=== PATIENT | female | born 1995 | race Caucasian/White ===

== ENCOUNTER 2019-03-14 09:37 | Outpatient (CLI) | payer OTHER ==
--- NOTE | 2019-03-14 10:20 | Non Stress Test Report ---
Non Stress Test Datetime Report Generated by CPN: 03/14/2019 10:20 DEMOGRAPHIC EGA NST: 38.2 INDICATION Indication for Study: Macrosomia; Ordered by Provider VITAL SIGNS Temperature - NST: 98.4 RESP - NST: 18 MONITORING Monitor Explained: Monitor Explained; Test Explained; Patient Verbalized Understanding Time on Monitor: 03/14/2019 09:48 Time off Monitor: 03/14/2019 10:17 NST Duration: 29 NST INTERVENTIONS NST Interventions: PO Hydration; Reposition Patient Physician Notified NST: DR NELSON BABY A: [id number] BABY A Movement : Present Contraction Frequency : none FHR Baseline : 140 Accelerations : 15X15 Decelerations : None Variability : Minimal - Undetectable to <=5bpm NST Review: Meets Criteria for Reactive NST NST Review and Verified By : Librado Honeycutt RN NST Results: Reactive NST REPORT Report Trigger: Send Report
== END 2019-03-14 10:18 | disposition home or self-care (01) ==
LOC: LC 09:37
PROVIDERS: ATTEND Obstetrics & Gynecology
PROC: 4A1HXCZ Monitoring of Products of Conception, Cardiac Rate, External Approach (ICD-10-PCS; principal; 2019-03-14)
DX: Z34.93 Encounter for supervision of normal pregnancy, unspecified, third trimester (principal)
CPT/HCPCS: 59025

== ENCOUNTER 2019-03-20 05:06 | Inpatient (IN) | payer OTHER ==
[2019-03-19 12:11] LABS: ABSOLUTE LYMPHOCYTES (AUTO) 1.1 10^3/uL (0.5-4.7); ABSOLUTE MONOCYTES (AUTO) 0.9 10^3/uL (0.1-1.4); ABSOLUTE NEUT (AUTO) 8.8 10^3/uL (1.7-8.2); BASOPHILS % (AUTO) 0.2 % (0-2); EOSINOPHILS % (AUTO) 0.2 % (0-6); HEMATOCRIT 34.5 % (36.0-47.0); HEMOGLOBIN 11.8 g/dL (12.0-15.5); LYMPHOCYTES % (AUTO) 9.9 % (13-45); MEAN CORPUSCULAR HEMOGLOBIN 29.8 pg (27.0-33.4); MEAN CORPUSCULAR HGB CONC 34.3 g/dL (32.0-36.0); MEAN CORPUSCULAR VOLUME 87 fl (80-97); MONOCYTES % (AUTO) 8.4 % (3-13); PLATELET COUNT 161 10^3/uL (150-450); RED BLOOD COUNT 3.97 10^6/uL (3.72-5.28); RED CELL DISTRIBUTION WIDTH 13.6 % (11.5-14.0); SEGMENTED NEUTROPHILS % (AUTO) 81.3 % (42-78); TOTAL CELLS COUNTED % (AUTO) 100 %; WHITE BLOOD COUNT 10.8 10^3/uL (4.0-10.5)
[2019-03-19 12:29] LABS: APPEARANCE,URINE CLEAR; BILIRUBIN,URINE NEGATIVE (NEGATIVE); COLOR,URINE YELLOW; GLUCOSE, URINE NEGATIVE (NEGATIVE); KETONES,URINE NEGATIVE (NEGATIVE); LEUKOCYTE ESTERASE,URINE NEGATIVE (NEGATIVE); NITRITE,URINE NEGATIVE (NEGATIVE); PROTEIN,URINE NEGATIVE (NEGATIVE); URINE SPECIFIC GRAVITY 1.006; UROBILINOGEN,URINE NEGATIVE mg/dL (<2.0)
[2019-03-19 12:50] LABS: URINE AMPHETAMINES SCREEN NEGATIVE; URINE BARBITURATES SCREEN NEGATIVE; URINE BENZODIAZEPINES SCREEN NEGATIVE; URINE COCAINE SCREEN NEGATIVE; URINE MARIJUANA (THC) SCREEN NEGATIVE; URINE METHADONE SCREEN NEGATIVE; URINE PHENCYCLIDINE SCREEN NEGATIVE
[2019-03-19 12:58] LABS: ADD MANUAL MICROSCOPIC YES; WBC,URINE NONE SEEN /HPF
[2019-03-19 12:59] LABS: RBC,URINE NONE SEEN /HPF
[~2019-03-20 05:06] MED LIST: CEFAZOLIN SODIUM 2 GM in DEXTROSE 5%-WATER 100 ML IV PRN; LIDOCAINE 0.5% INJ-PF (5 MG/ML) 50 ML SDV SUBCUT PRN; RINGERS SOLUTION,LACTATED 1,500 ML IV PRN
[2019-03-20] MEDS ORDERED: CEFAZOLIN INJ 1 GM VIAL ONE (06:43)
[2019-03-20] MEDS: LACTATED RINGERS 1000 ML IV PRN ×2 (06:49→17:39)
[2019-03-20] MEDS ORDERED: MIDAZOLAM 2 MG/2 ML INJ ONE (07:39)
[2019-03-20] MEDS ORDERED: PHENYLEPHRINE HCL INJ/PF 10 MG/1 ML SDV ONE (07:39)
[2019-03-20] MEDS ORDERED: CITRIC ACID/SODIUM CITRATE ORAL SOLN 15 ML UDCUP ONE (07:39)
[2019-03-20] MEDS ORDERED: OXYTOCIN 10 UNIT/ML VIAL ONE (07:39)
[2019-03-20] MEDS ORDERED: OXYTOCIN/NORMAL SALINE 20 UNIT/1,000 ML RTUINJ ONE (07:40)
[2019-03-20] MEDS ORDERED: ONDANSETRON HCL INJ/PF 4 MG/2 ML SDV ONE (07:40)
[2019-03-20] MEDS ORDERED: METHYLERGONOVINE MALEATE INJ/PF 0.2 MG/1 ML AMPULE ONE (08:22)
[2019-03-20] MEDS ORDERED: DIPHENHYDRAMINE HCL 50 MG/ML VIAL IV PRN (08:42)
[2019-03-20] MEDS ORDERED: PROMETHAZINE HCL INJ 25 MG/1 ML VIAL IV PRN ×2 (08:42→09:12)
[2019-03-20] MEDS ORDERED: FENTANYL CITRATE INJ/PF 100 MCG/2 ML AMPUL IV PRN ×3 (08:42)
[2019-03-20] MEDS ORDERED: PROPOFOL INJ 200 MG/20 ML VIAL IV ONE (08:59)
[2019-03-20] MEDS ORDERED: KETOROLAC TROMETHAMINE INJ/PF 30 MG/1 ML SDV ONE (09:02)
--- NOTE | 2019-03-20 09:02 | PDOC DELIVERY SUMMARY ---
Delivery Summary - Maternal Hx : I Hx # Pregnancies: 0 Hx Total # of Abortions (Sponateous & Elective): 0 LUCILA: 03/26/19 Gestational Age: 39+1 Risk Factors: Other - macrosomia Ruptured Membranes: AROM Fluids: Clear - Delivery Labor: Not In Labor Presentation: Vertex Heart Rate Monitoring: Done Pre-Operatively Uterine Contraction Monitoring: External Support Person Present: Yes Location: OR : Scheduled Placenta: Within Normal Limits Number of Vessels (Cord): 3 Nuchal Cord: Yes Delivery of Placenta Date: 03/20/19 Delivery of Placenta Time: 08:16 Delivery Quantitative Blood Loss (QBL): 772 - Medications Type of Anesthesia:: Spinal - Assess and Care Baby 1 Male Delivery of Date: 03/20/19 Delivery of Infant Time: 08:16 at 1 minute: 8 at 5 minutes: 9 Preprinted Number On Band: [id number] Infant Skin to Skin: Yes Skin to Skin (Mins): 5 Mode of Transport: Bassinet Infant Delivery Weight: 4,165 Delivery Length: 21 in - Delivery Personnel Nursery RN: GRICEL CORDERO MD: TARAS
[2019-03-20] MEDS ORDERED: MORPHINE SULFATE 10 MG/ML INJ ONE (09:03)
[2019-03-20] MEDS ORDERED: MORPHINE SULFATE 10 MG/ML INJ IV ONE (09:07)
[2019-03-20] MEDS ORDERED: ACETAMINOPHEN 1,000 MG/100 ML RTUPB IV PRN (09:12)
[2019-03-20] MEDS ORDERED: ACETAMINOPHEN 325 MG TABLET PO PRN (09:12)
[2019-03-20] MEDS ORDERED: RINGERS SOLUTION,LACTATED 1,000 ML IV PRN (09:12)
[2019-03-20] MEDS ORDERED: OXYTOCIN/NORMAL SALINE 20 UNIT/1,000 ML RTUINJ IV PRN (09:12)
[2019-03-20] MEDS ORDERED: OXYCODONE-ACETAMINOPHEN 5-325 MG TABLET PO PRN (09:12)
[2019-03-20] MEDS ORDERED: DIPH/PERTUSS(ACELL)/TETANUS VAC/PF 0.5 ML SYR (>=10YO) IM PRN (09:12)
[2019-03-20] MEDS ORDERED: HYDROMORPHONE HCL INJ/PF 2 MG/ML AMPULE IV PRN (09:12)
--- NOTE | 2019-03-20 09:12 | Operative Report ---
Operative Report DATE OF SURGERY: 03/20/19 PREOPERATIVE DIAGNOSIS: 1. Intrauterine at 39-1/7 weeks. 2. Suspec james macrosomia. 3. BS negative. 4. Rh+. 5. Rubella immune POSTOPERATIVE DIAGNOSIS: Same OPERATION: Primary low transverse section via Pfannenstiel SURGEON: CHARITY MCNULTY ANESTHESIA: Spinal TISSUE REMOVED OR ALTERED: Placenta COMPLICATIONS: None INTRAOPERATIVE FINDINGS: Male fetus in the cephalic position with nuchal cord x1: Vacuum-assisted; Apgars 8 at 1, 9 at 5 with a weight of 9 pounds 2 o unces. Normal uterus, bilateral tubes and ovaries PROCEDURE: The patient was taken to the operating room where spinal anesthesia was obtained and found to be adequate. She was then prepped and draped in the normal sterile fashion and placed in the dorsal supine position with a leftward tilt. A Pfannenstiel skin incision was then made and carried through to the underlying layers of the fascia with the scalpel. The fascia was incised in the midline and the incision extended laterally with the Haas scissors. The superior aspect of the fascial incision was then grasped with Carolina clamps elevated and the underlying rectus muscles dissected off both bluntly and sharply. Attention was then turned to the inferior aspect of the fascial incision which in a similar fa shion was grasped, tented up with Carolina clamps, and the rectus muscles dissected off both bluntly and sharply. The rectus muscles were then in the midline and the peritoneum was identified and entered both sharply and bluntly. The peritoneal incision was then extended superiorly and inferiorly with good visualization of the bladder. The bladder blade was inserted and the vesicouterine peritoneum identified grasped with Anguillan pickups and entered sharply with the Metzenbaum scissors. This incision was then extended laterally with the Metzenbaum scissors and a bladder flap created digitally. The bladder blade was then reinserted and the lower uterine segment incised in a transverse fashion with the scalpel. The uterine incision was then extended bluntly and with the bandage scissors. The bladder blade was removed and the 's head was delivered from a cephalic presentation with the assistance of a vacuum. The cord doubly clamped and cut. The infant was handed off to waiting manpower development specialist manager. The placenta was then delivered manually and the uterus exteriorized and cleared of all clots and debris. The uterine incision was then repaired with 0 Vicryl in a running locked fashion. 0-Chromic was used to obtain hemostasis via imbrication of the initial layer. The bladder flap was then repaired with 3-0 Vicryl in a running fashion. The uterus was returned to the patient's abdomen and Interceed was placed overlying the uterine incision, as well as a piece placed vertically on the anterior surface of the uterus, to prevent adhesions. The gutters were cleared of all clots and debris. Peritoneum was then closed in a running fashion with 2-0 Vicryl. All operative sites were noted to be hemostatic. The fascia was reapproximated with 0 Vicryl in a running fashion from each lateral edge to the midline. The subcutaneous fat layer was then closed in an interrupted fashion with 3-0 vicryl. The skin was closed with 4-0 Monocryl in a running, subcuticular fashion. The patient tolerated the procedure well. Sponge, lap, needle and instrument counts are correct x 2. 2 g of Ancef were given prior to skin incision. The patient was taken to the recovery area awake and in stable condition.
[2019-03-20] MEDS ORDERED: ACETAMINOPHEN 1,000 MG/100 ML RTUPB IV ONE (09:18)
[2019-03-20] MEDS ORDERED: KETOROLAC TROMETHAMINE INJ/PF 30 MG/1 ML SDV IV ONE (10:00)
[2019-03-20] MEDS: MORPHINE SULFATE 10 MG/ML INJ IV PRN ×2 (10:09→10:32)
[2019-03-20] MEDS: PRENATAL VITAMIN W DHA CAPSULE PO SCH (17:13)
[2019-03-20] MEDS: DOCUSATE SODIUM 100 MG CAPSULE PO SCH ×2 (17:13→17:48)
[2019-03-20] MEDS: KETOROLAC TROMETHAMINE INJ/PF 30 MG/1 ML SDV IV SCH (17:48)
[2019-03-21] MEDS: OXYCODONE-ACETAMINOPHEN 5-325 MG TABLET PO PRN (02:17)
[2019-03-21] MEDS: KETOROLAC TROMETHAMINE INJ/PF 30 MG/1 ML SDV IV SCH (02:18)
[2019-03-21 06:55] LABS: HEMATOCRIT 31.8 % (36.0-47.0); HEMOGLOBIN 10.8 g/dL (12.0-15.5); MEAN CORPUSCULAR HEMOGLOBIN 29.5 pg (27.0-33.4); MEAN CORPUSCULAR VOLUME 87 fl (80-97); PLATELET COUNT 148 10^3/uL (150-450); RED BLOOD COUNT 3.66 10^6/uL (3.72-5.28); RED CELL DISTRIBUTION WIDTH 14.1 % (11.5-14.0); WHITE BLOOD COUNT 12.9 10^3/uL (4.0-10.5)
[2019-03-21] MEDS ORDERED: IRON SUCROSE COMPLEX INJ/PF 100 MG/5 ML SDV IV ONE (09:00)
[2019-03-21] MEDS: DOCUSATE SODIUM 100 MG CAPSULE PO SCH (09:37)
[2019-03-21] MEDS: PRENATAL VITAMIN W DHA CAPSULE PO SCH (09:37)
[2019-03-21] MEDS: IBUPROFEN 800 MG TABLET PO SCH ×3 (09:37→21:21)
[2019-03-21] MEDS: SIMETHICONE 80 MG TAB.CHEW PO PRN (11:32)
--- NOTE | 2019-03-21 11:59 | PDOC PROGRESS REPORT ---
Subjective-OB Progress Note for:: 03/21/19 Subjective: reports bleeding slowing, pain controlled with current meds, denies needs, states she is not passing gas yet Physical Exam (OB) Vital Signs: Temp Pulse Resp BP Pulse Ox 97.7 F 96 16 102/72 98 03/21/19 07:45 03/21/19 07:45 03/21/19 07:45 03/21/19 07:45 03/21/19 07:45 Intake & Output 03/20/19 03/21/19 03/22/19 06:59 06:59 06:59 Intake Total 1200 Output Total 3400 Balance -2200 Weight 82.3 kg - Dressing Removed: No Incision: Dressing Closure Type: OPSITE ON - Abdomen Description: Tender, Soft, Round Hernia Present: No Bowel Sounds: Hyperactive Fundal Description: Firm, Midline Fundal Height: u/u - u/2 - Abdominal Distension: No distension - Extremities Lower extremities: Enrique's sign - neg Calf: Normal, Nontender Objective-Diagnostic Laboratory: 03/21/19 06:44 03/21/19 06:44 WBC 12.9 H RBC 3.66 L Hgb 10.8 L Hct 31.8 L MCV 87 MCH 29.5 MCHC 34.0 RDW 14.1 H Plt Count 148 L Assessment and Plan(PN) - Assessment and Plan (1) S/P primary low transverse Is this a current diagnosis for this admission?: Yes - Time Spent with Patient Time with patient: Less than 15 minutes Medications reviewed and adjusted accordingly: Yes - Disposition Anticipated Discharge: Home Within: within 48 hours
[2019-03-22] MEDS: OXYCODONE-ACETAMINOPHEN 5-325 MG TABLET PO PRN (04:21)
[2019-03-22] MEDS: IBUPROFEN 800 MG TABLET PO SCH ×2 (04:21→09:48)
[2019-03-22] MEDS: SIMETHICONE 80 MG TAB.CHEW PO PRN (04:22)
[2019-03-22] MEDS: DOCUSATE SODIUM 100 MG CAPSULE PO SCH ×2 (09:40→09:48)
[2019-03-22] MEDS: PRENATAL VITAMIN W DHA CAPSULE PO SCH (09:48)
--- NOTE | 2019-03-22 13:06 | PDOC DISCHARGE SUMMARY ---
Final Diagnosis Discharge Date: 03/22/19 - Final Diagnosis (1) S/P primary low transverse Is this a current diagnosis for this admission?: Yes Discharge Data - Discharge Medication Prescriptions: Ibuprofen [Motrin 800 mg Tablet] 800 mg PO Q8HP PRN #60 tablet PRN Reason: Oxycodone HCl/Acetaminophen [Percocet 5-325 mg Tablet] 1 tab PO Q4HP PRN #30 tablet PRN Reason: Home Medications: Prenat 115/Iron Fum/Folic/Dss [ 19 Tablet] 1 each PO DAILY 03/19/19 Docusate Sodium [Colace 100 mg Capsule] 100 mg PO BID capsule 03/22/19 Ibuprofen [Motrin 800 mg Tablet] 800 mg PO Q8HP PRN #60 tablet 03/22/19 Oxycodone HCl/Acetaminophen [Percocet 5-325 mg Tablet] 1 tab PO Q4HP PRN #30 tablet 03/22/19 Reason(s) for Admission: Ceasarean Section-Primary Procedures: NST Intrapartum Procedure(s): : Low Cervical, Transverse - Diagnosis Test Laboratory: Temp Pulse Resp BP Pulse Ox 98.1 F 105 H 18 107/64 99 03/22/19 12:26 03/22/19 12:26 03/22/19 12:26 03/22/19 12:26 03/22/19 12:26 03/19/19 03/19/19 03/21/19 10:55 11:05 06:44 RBC 3.97 3.66 L Hgb 11.8 L 10.8 L Hct 34.5 L 31.8 L Urine Opiates Screen NEGATIVE - Discharge information/Instructions Discharge Activity: Balance Activity w/Rest, No Lifting Over 10 Pounds, No Lifting/Push/Pulling, Pelvic Rest, No tub bath Discharge Diet: Regular Disposition: HOME, SELF-CARE Follow up with: [facility] in: 1, Weeks
[2019-03-22 13:28] VITALS: BP 127/74
== END 2019-03-22 15:38 | disposition home or self-care (01) | DRG 788 ==
LOC: 2S 05:06
PROVIDERS: ADMIT Obstetrics & Gynecology; ATTEND Obstetrics & Gynecology
PROC: 10D00Z1 Extraction of Products of Conception, Low, Open Approach (ICD-10-PCS; principal; 2019-03-20 07:45)
DX: O36.63X0 Maternal care for excessive fetal growth, third trimester, not applicable or unspecified (principal); O99.344 Other mental disorders complicating childbirth; F41.9 Anxiety disorder, unspecified; Z3A.39 39 weeks gestation of pregnancy; Z37.0 Single live birth
CPT/HCPCS: 1961; 36415; 59025; 80307; 81001; 85025; 85027; 86850; 86900; 86901; 88307; 94799; C1765; J0131; J0690; J1170; J1885; J2250; J2270; J2370; J2405; J2550; J2590; J2704; J3490; J7060; J7120